=== PATIENT | female | born 1995 | race Caucasian/White ===

== ENCOUNTER 2016-09-17 14:27 | Emergency (ER) | payer BC ==
[~2016-09-17] VITALS: Ht 165.1 cm; Wt 65.0 kg
[2016-09-17] MEDS ORDERED: PREDNISONE 20MG TABLET PO ONE (15:45)
[2016-09-17] MEDS ORDERED: FAMOTIDINE 20MG TABLET PO ONE (15:45)
[2016-09-17 17:18] VITALS: BP 122/65
== END 2016-09-17 17:19 | disposition home or self-care (01) ==
LOC: ER 14:48
DX: T78.40XA Allergy, unspecified, initial encounter (principal); R06.02 Shortness of breath; R60.9 Edema, unspecified; Y92.89 Other specified places as the place of occurrence of the external cause; Z91.010 Allergy to peanuts
CPT/HCPCS: 99283; J7512